=== PATIENT | male | born 1970 | race Two or more races ===

== ENCOUNTER 2021-08-16 18:53 | Emergency (ER) | payer SELFPAY ==
[~2021-08-16] VITALS: Ht 188 cm; Wt 87.1 kg
[2021-08-16] MEDS ORDERED: MECLIZINE HCL 12.5 MG TABLET PO ONE (19:30)
[2021-08-16] MEDS ORDERED: IV NS 0.9% 1,000 ML BAG IV ONE (19:30)
[2021-08-16] MEDS ORDERED: MECLIZINE HCL 25 MG TABLET ONE (19:31)
[2021-08-16 19:49] LABS: CALCIUM, SERUM 9.3 mg/dL (8.5-10.1); CARBON DIOXIDE 28 mmol/L (21-32); CHLORIDE 103 mmol/L (98-107); CREATININE 1.1 mg/dL (0.6-1.3); GLUCOSE 109 mg/dL (74-106); POTASSIUM 3.6 mmol/L (3.5-5.1); SODIUM SERUM 141 mmol/L (136-145); UREA NITROGEN, BLOOD 9 mg/dL (7-18)
--- NOTE | 2021-08-16 19:53 | NUR ---
RECEIVED PATIENT IN BED, PATIENT STATES HE WAS BROUGHT IN FOR [facility]. PATIENT STATES HE WAS AT WORK AND FELT DIZZY. DENIES FALLING AND HITTING HEAD. PATIENT STATES HE HAS HISTORY OF VERTIGO.
[2021-08-16 19:55] LABS: ALANINE AMINOTRANSFERASE 13 U/L (12-78); ALBUMIN 4.2 g/dL (3.4-5.0); ALKALINE PHOSPHATASE 74 U/L (46-116); ASPARTATE AMINOTRANSFERASE 24 U/L (15-37); BILIRUBIN,DIRECT 0.1 mg/dL (0.0-0.2); BILIRUBIN,TOTAL 0.4 mg/dL (0.2-1.0); TOTAL PROTEIN, SERUM 7.7 g/dL (6.4-8.2)
--- NOTE | 2021-08-16 19:55 | NUR ---
ESTABLISHED RIGHT AC 20G PIV WITH GOOD BLOOD RETURN.
[2021-08-16 20:15] LABS: BASOPHILS # (AUTO) 0.1 K/uL (0.0-0.2); BASOPHILS % (AUTO) 0.9 % (0.0-2.0); HEMATOCRIT 39 % (39-51); HEMOGLOBIN 13.3 g/dL (13.5-17.5); LYMPHOCYTES # (AUTO) 2.3 K/uL (0.8-4.8); LYMPHOCYTES % (AUTO) 28.9 % (20.0-44.0); MEAN CORPUSCULAR HGB CONC 34 g/dl (31.0-36.0); MEAN CORPUSCULAR VOLUME 90 fL (80-96); MONOCYTES # (AUTO) 0.7 K/uL (0.1-1.30); MONOCYTES % (AUTO) 8.3 % (2.0-12.0); NEUTROPHILS # (AUTO) 4.8 K/uL (1.8-8.9); NEUTROPHILS % (AUTO) 60.9 % (43.0-81.0); PLATELET COUNT (AUTO) 208 K/uL (150-450); RED BLOOD CELL COUNT(AUTO) 4.37 MIL/uL (4.5-6.0); WHITE BLOOD COUNT (AUTO) 7.9 K/uL (4.3-11.0)
[2021-08-16] MEDS ORDERED: MECL-159 PO (20:32)
--- NOTE | 2021-08-16 20:45 | NUR ---
Patient discharged to home in stable condition. Written and verbal after care instructions given. Patient verbalizes understanding of instruction.
[2021-08-16 20:46] VITALS: BP 138/81
== END 2021-08-16 20:46 | disposition home or self-care (01) ==
LOC: ER 19:03
DX: R42 Dizziness and giddiness (principal)
CPT/HCPCS: 36415; 80048; 80076; 84484; 85025; 93005; 96360; 99284; J7030; J8597